=== PATIENT | male | born 1955 | race Caucasian/White ===

== ENCOUNTER 2017-09-08 05:20 | Inpatient (IN) | payer OTHER ==
[2017-08-28 10:45] LABS: HEMATOCRIT 44.7 % (42.0-52.0); HEMOGLOBIN 15.3 gm/dL (14.0-18.0); MCH 30.5 pg (26.0-34.0); MCHC 34.2 g/dL (28.0-37.0); MCV 89.1 fL (80.0-100.0); RBC 5.01 mil/uL (4.50-6.00); RDW 13.6 % (10.5-14.5); WBC 13.9 thou/uL (4.0-11.0)
[2017-08-28 10:59] LABS: ALBUMIN 4.1 g/dL (3.4-5.0); CALCIUM 9.9 mg/dL (8.5-10.1); CREATININE 1.1 mg/dL (0.7-1.3); POTASSIUM 4.6 mmol/L (3.5-5.1)
[2017-08-28 11:00] LABS: PROTIME 10.4 Seconds (9.3-11.4)
[2017-08-28 11:02] LABS: URINE BILIRUBIN NEGATIVE (Negative); URINE BLOOD NEGATIVE (Negative); URINE CLARITY CLEAR; URINE COLOR YELLOW; URINE GLUCOSE-RANDOM* NEGATIVE (Negative); URINE KETONES NEGATIVE (Negative); URINE LEUKOCYTES-REFLEX NEGATIVE (Negative); URINE NITRITE-REFLEX NEGATIVE (Negative); URINE PROTEIN (DIPSTICK) NEGATIVE (Negative); URINE UROBILINOGEN 0.2 E.U./dl (0.2-1.0)
[~2017-09-08] VITALS: Ht 177.8 cm; Wt 102.5 kg
--- NOTE | ~2017-09-08 | EKG ---
[address] [address] ELECTROCARDIOGRAM REPORT Name: RHEA NICOLE Room #: PRE IN [facility]#: [id number] Admission: Attend Phys: Rhea Kapadai MD Discharge: Date of : 59 Report #: [id number] THIS REPORT FOR: //name// [facility] Test Date: 2017-08-28 Test Time: 10:44:33 Pat Name: RHEA NICOLE Department: Room: Gender: Valet Manager: Lizet Escobar : 1955 Requested By: Rhea Kapadia Order Number: [id number] MD: Nehemias Escudero Measurements Intervals Darwin Rate: 60 P: 51 MD: 184 QRS: 46 QRSD: 85 T: 34 QT: 395 QTc: 395 Interpretive Statements Sinus rhythm Normal tracing No previous ECG available for comparison Electronically Signed On 08-28-2017 16:59:45 WELLNESS PROGRAM ADMINISTRATOR by Nehemias Escudero [email or web address] <ELECTRONICALLY SIGNED> By: Nehemias Escudero MD, [facility] 08/28/17 1659 1044 1044 Nehemias Escudero MD, FAC /EPI
--- NOTE | ~2017-09-08 | O ---
[facility] [place] [address] OPERATIVE REPORT Name: COREYRHEA Room #: 409-P [facility] IN M.R.#: [id number] Admission: 09/08/17 Attend Phys: Rhea Kapadia MD Discharge: Date of : 59 Report #: [id number] THIS REPORT FOR: //name// CC: Rhea APODACA unknown DATE OF SERVICE: 09/08/2017 PREOPERATIVE DIAGNOSIS: End-stage degenerative arthritis, left knee. POSTOPERATIVE DIAGNOSIS: End-stage degenerative arthritis, left knee. PROCEDURE: Left total knee arthroplasty. SURGEON: Rhea Kapadia MD INDICATIONS: This 62-year-old gentleman has experienced progressive left knee pain over the past year. Symptoms have not resolved following previous conservative management including medications, injections and arthroscopic debridement. His findings suggest significant progressive osteochondral damage, particularly in the medial femoral condyle as well as less severe damage in other compartments. He has elected to go ahead with left total knee arthroplasty. DESCRIPTION OF PROCEDURE: The patient was taken to the operating room where he was placed under general anesthesia. Prophylactic intravenous antibiotics were administered. The left knee and leg were meticulously prepped and draped. A thigh tourniquet was applied and inflated to 300 mmHg. An anterior longitudinal skin incision was made. The dissection was carried through the medial retinaculum and the patella was reflected laterally. Moderate degenerative change on the patella and the lateral compartment was noted. There was marked damage on the medial compartment with a large area of loose, unstable, delaminated osteochondral damage on the medial femoral condyle and similar, but less severe damage on the medial tibial plateau. There was also moderate degenerative damage to the medial meniscus. These findings were certainly consistent with a progressive degenerative process and knee replacement certainly seems most appropriate given these findings. The [employer] knee system was utilized. Intramedullary guides were used on both the femur and the tibia. The femur was cut in 5 degrees of valgus and the tibia cut perpendicular to long axis of the bone. The femur seemed best suited for a size 6 left Legion femoral component. The tibia seemed best suited for a size 5 Zayda left tibial baseplate. A trial reduction was performed and an 11-mm polyethylene insert resulted in satisfactory alignment, range of motion, and stability. The patellar surface was resected and a 35-mm patellar button fit nicely. Appropriate anchor holes were created. A trial button was [address] [address] OPERATIVE REPORT Name: RHEA NICOLE Room #: 409-P [facility] IN .R.#: [id number] Admission: 09/08/17 Attend Phys: Rhea Kapadia MD Discharge: Date of : 59 Report #: [id number] applied and the patella was assessed through a full arc of movement. The patella seemed to track nicely and appeared to be stable. The trial components were removed. The bony surfaces were thoroughly irrigated and dried. The intramedullary canal was blocked with a bone block on both the femoral and tibial sides. The methyl methacrylate cement was mixed and the permanent components were brought on to the field. Cement was injected into the porous surface of the proximal tibia. The [employer] Nephew size 5 Zayda left tibial base plate was then inserted. This was impacted into position and seated nicely. Excess cement was removed around its margin. A size 11 polyethylene cruciate retaining high flexion insert was inserted. This was snapped into position and seated nicely and appeared to seat nicely. The size 6 left cruciate retaining femoral component was impacted into position, it also seated nicely and appeared to be secure. A 35-mm patellar button was cemented into place using appropriate anchor holes and cement. This was secured with a patellar clamp until the cement had hardened. All excess cement was removed from around the margins of the implants. Range of motion, alignment, and stability were once again assessed and felt to be satisfactory. The knee demonstrated full knee extension and good stability with varus and valgus stress. The knee flexes well beyond 135 degrees without any apparent instability issues. The patella seemed to track nicely. At this point, a single Hemovac was left in the knee exiting through a lateral stab incision. The fascia was closed with multiple #1 Vicryl sutures. The subcutaneous tissues were closed with 0 Monocryl. The skin was closed with skin neha. The tourniquet was deflated after a total tourniquet time of 75 minutes. A sterile dressing was applied. The patient was awakened and returned to recovery room in good condition. <ELECTRONICALLY SIGNED> By: Rhea Kapadia MD 09/09/17 1227 0932 [id number] Rhea Kapadia MD /nt
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
[~2017-09-08 05:20] MED LIST: ATENOLOL 50MG T50 M1 PO; GLUCOPHAGE850 MG PO; PAXIL 20 MG TAB20 MG PO
[2017-09-08 06:30] VITALS: BP 140/77
[2017-09-08 16:45] VITALS: BP 119/55
[2017-09-08 19:46] VITALS: BP 100/51
[2017-09-09 03:56] VITALS: BP 115/53
[2017-09-09 06:18] LABS: HEMATOCRIT 34.4 % (42.0-52.0); HEMOGLOBIN 11.7 gm/dL (14.0-18.0); MCH 30.8 pg (26.0-34.0); MCHC 34.1 g/dL (28.0-37.0); MCV 90.4 fL (80.0-100.0); RBC 3.8 mil/uL (4.50-6.00); RDW 13.2 % (10.5-14.5); WBC 15.8 thou/uL (4.0-11.0)
[2017-09-09 09:54] VITALS: BP 120/49
[2017-09-09 10:11] VITALS: BP 120/49
[2017-09-09 16:49] VITALS: BP 113/63
[2017-09-09 20:12] VITALS: BP 143/70
[2017-09-10 00:34] VITALS: BP 126/76
[2017-09-10 04:00] VITALS: BP 141/71
[2017-09-10 06:10] LABS: HEMATOCRIT 33.5 % (42.0-52.0); HEMOGLOBIN 11.6 gm/dL (14.0-18.0); MCH 30.9 pg (26.0-34.0); MCHC 34.5 g/dL (28.0-37.0); MCV 89.7 fL (80.0-100.0); RBC 3.74 mil/uL (4.50-6.00); RDW 13.5 % (10.5-14.5); WBC 13.4 thou/uL (4.0-11.0)
[2017-09-10 07:35] VITALS: BP 129/51
[2017-09-10 15:25] VITALS: BP 115/70
[2017-09-10 17:09] VITALS: BP 115/70
[2017-09-11 03:10] LABS: GLYCOHEMOGLOBIN (HGB A1C) 6.4 % (4.8-5.6)
== END 2017-09-10 17:45 | disposition home or self-care (01) | DRG 470 ==
LOC: TBA 05:20 → 4N 05:20 → PRE 05:25 → 4N 15:52
PROVIDERS: Internal Medicine; Orthopaedic Surgery
PROC: 0SRD0J9 Replacement of Left Knee Joint with Synthetic Substitute, Cemented, Open Approach (ICD-10-PCS; principal; 2017-09-08)
DX: M17.12 Unilateral primary osteoarthritis, left knee (principal); E11.9 Type 2 diabetes mellitus without complications; F32.9 Major depressive disorder, single episode, unspecified; I10 Essential (primary) hypertension
CPT/HCPCS: 10790; 50010; 50101; 50415; 50954; 51130; 51225; 51412; 51771; 53367; 56525; 62110; 62900; 64042; 70005